=== PATIENT | female | born 1990 ===

== ENCOUNTER 2019-01-10 20:31 | Emergency (ER) | payer OTHER ==
[~2019-01-10] VITALS: Ht 152.4 cm; Wt 54.9 kg
[~2019-01-10 20:31] MED LIST: DOLOGEN CAPLET1 EACH PO
== END 2019-01-10 23:17 | disposition home or self-care (01) ==
LOC: ER 20:31
DX: R00.0 Tachycardia, unspecified (principal); T50.995A Adverse effect of other drugs, medicaments and biological substances, initial encounter